=== PATIENT | male | born 1950 | race Caucasian/White ===

== ENCOUNTER 2017-07-27 21:15 | Emergency (ER) | payer OTHER ==
[~2017-07-27] VITALS: Ht 170.2 cm; Wt 72.7 kg
[~2017-07-27 21:15] MED LIST: DOCUSATE SODIU100 MG PO; FEOSOL325 MG PO; FLEXERIL10 MG PO; FUROSEMIDE40 MG PO; LIBRIUM25 MG PO; LISINOPRIL2.5 MG PO; NAPROSYN500 MG PO; PANTOPRAZOLE SO40 MG PO; POTASSIUM CHLO20 ME1 PO; THIAMINE HCL100 MG PO; TYLENOL REGULA325 MG PO; VICODIN 5-3001 EACH PO
[2017-07-27 22:03] LABS: ALBUMIN 3.4 g/dL (3.2-4.8); CHLORIDE 105 mEq/L (99-109); POTASSIUM 3.7 mEq/L (3.7-5.4); SODIUM 141 mEq/L (136-147)
[2017-07-27 22:05] LABS: GLUCOSE 107 mg/dL (70-99)
[2017-07-27 22:06] LABS: TOTAL PROTEIN 6.6 g/dL (6.4-8.3)
[2017-07-27 22:07] LABS: TOTAL BILIRUBIN 0.7 mg/dL (0.0-1.0)
[2017-07-27 22:09] LABS: ALKALINE PHOSPHATASE 217 IU/L (3-129); CREATININE 0.8 mg/dL (0.6-1.3); GFR ESTIMATE (CALCULATED) > 59 mL/min/ (58.99-99999)
[2017-07-27 22:10] LABS: UREA NITROGEN (BUN) 15 mg/dL (9-23)
[2017-07-27 22:11] LABS: AST (GOT) 280 IU/L (2-34)
[2017-07-27 22:12] LABS: ALT (GPT) 121 IU/L (3-49); LIPASE 66 U/L (1.0-51.0)
[2017-07-27 22:14] LABS: TROP-I INTERPRETATION NEGATIVE; TROPONIN-I < 0.01 ng/mL (0.0-0.30)
[2017-07-27 22:26] LABS: SERUM ETHYL ALCOHOL 343 mg/dL
[2017-07-27 22:37] LABS: HEMATOCRIT 31.3 % (38.0-50.0); MCH 39.7 PG (29.0-34.0); MCHC 38.3 G/DL (30.0-36.0); MCV 103.6 FL (86-99); RBC DIS.WIDTH-CV 14.9 % (11.8-14.6); RBC DIS.WIDTH-SD 56.9 % (39-53); RED BLOOD COUNT 3.02 M/uL (4.00-5.50); WHITE BLOOD COUNT 4.4 K/uL (4.1-10.2)
[2017-07-27 22:46] LABS: ANISOCYTOSIS 1+; BASOPHIL (%) 0.9 % (0-1); EOSINOPHIL (%) 1.6 % (0-5); EOSINOPHIL COUNT 0.1 K/uL (0-0.3); IMM.PLATELET FRACTION 4.2 (1-7); IMMATURE GRANULOCYTE (%) 0.2 % (0.0-0.7); LYMPHOCYTE (%) 76.3 % (15-42); LYMPHOCYTE COUNT 3.4 K/uL (1.0-2.8); MACROCYTES 3+; MONOCYTE (%) 5.9 % (3-12); MONOCYTE COUNT 0.3 K/uL (0-0.8); NEUTROPHIL (%) 15.1 % (45-76); NEUTROPHIL COUNT 0.7 K/uL (1.8-6.4); PLAT.SUFFICIENCY VERY DECREASED; PLATELET COUNT 38 K/uL (156-360)
[2017-07-27 22:55] LABS: APPEARANCE CLEAR ((CLEAR)); BILIRUBIN NEGATIVE; BLOOD SMALL; COLOR YELLOW ((YELLOW)); GLUCOSE (STRIP) NEGATIVE; KETONES NEGATIVE; LEUKOCYTES NEGATIVE; NITRITE NEGATIVE; PROTEIN (STRIP) NEGATIVE; SPECIFIC GRAVITY 1.012 (1.000-1.030)
[2017-07-27 23:00] LABS: BACTERIA RARE /HPF; EPITHELIAL CELLS RARE /HPF; MUCUS TRACE /LPF; RED BLOOD CELLS 0-5 /HPF (0-5); UCUL ADDED? NO; WHITE BLOOD CELLS 0-5 /HPF (0-5)
[2017-07-28 00:41] VITALS: BP 130/79
== END 2017-07-28 00:42 | disposition left against medical advice (07) ==
LOC: EME 21:15
PROVIDERS: Emergency Medicine
DX: F10.129 Alcohol abuse with intoxication, unspecified (principal); Y90.8 Blood alcohol level of 240 mg/100 ml or more; R94.31 Abnormal electrocardiogram [ECG] [EKG]; Z53.21 Procedure and treatment not carried out due to patient leaving prior to being seen by health care provider; I10 Essential (primary) hypertension; I73.9 Peripheral vascular disease, unspecified; J45.909 Unspecified asthma, uncomplicated; F41.9 Anxiety disorder, unspecified; F17.200 Nicotine dependence, unspecified, uncomplicated; Z86.73 Personal history of transient ischemic attack (TIA), and cerebral infarction without residual deficits; Z87.19 Personal history of other diseases of the digestive system
CPT/HCPCS: 80053; 81003; 83690; 84484; 85025; 93005; G0480; J2405; J7120; Q0177

== ENCOUNTER 2017-08-02 16:21 | Inpatient (IN) | payer OTHER ==
[~2017-08-02] VITALS: Ht 170.2 cm; Wt 78.8 kg
[2017-08-02 17:20] LABS: ALBUMIN 3.8 g/dL (3.2-4.8)
[2017-08-02 17:21] LABS: CHLORIDE 99 mEq/L (99-109); SODIUM 134 mEq/L (136-147)
[2017-08-02 17:23] LABS: GLUCOSE 116 mg/dL (70-99); TOTAL PROTEIN 6.9 g/dL (6.4-8.3)
[2017-08-02 17:27] LABS: ALKALINE PHOSPHATASE 114 IU/L (3-129); CREATININE 1.2 mg/dL (0.6-1.3); GFR ESTIMATE (CALCULATED) > 59 mL/min/ (58.99-99999)
[2017-08-02 17:28] LABS: UREA NITROGEN (BUN) 18 mg/dL (9-23)
[2017-08-02 17:29] LABS: ALT (GPT) 88 IU/L (3-49)
[2017-08-02 17:30] LABS: LIPASE 48 U/L (1.0-51.0)
[2017-08-02 17:31] LABS: TROP-I INTERPRETATION NEGATIVE; TROPONIN-I < 0.01 ng/mL (0.0-0.30)
[2017-08-02 17:32] LABS: AST (GOT) 124 IU/L (2-34)
[2017-08-02 18:01] LABS: BASOPHIL (%) 0.8 % (0-1); EOSINOPHIL (%) 0.8 % (0-5); HEMATOCRIT 32.4 % (38.0-50.0); HEMOGLOBIN 11.4 G/DL (12.5-16.6); IMMATURE GRANULOCYTE (%) 0.3 % (0.0-0.7); LYMPHOCYTE (%) 37.1 % (15-42); LYMPHOCYTE COUNT 1.5 K/uL (1.0-2.8); MCHC 35.2 G/DL (30.0-36.0); MONOCYTE COUNT 0.4 K/uL (0-0.8); NRBC (%) 0.5 /100 WBC (0-0); RBC DIS.WIDTH-CV 14.7 % (11.8-14.6); RBC DIS.WIDTH-SD 60.2 % (39-53); RED BLOOD COUNT 2.92 M/uL (4.00-5.50); WHITE BLOOD COUNT 3.9 K/uL (4.1-10.2)
[2017-08-02 18:44] LABS: IMM.PLATELET FRACTION 7.5 (1-7); PLAT.SUFFICIENCY VERY DECREASED; PLATELET COUNT 43 K/uL (156-360)
[2017-08-02 20:55] VITALS: BP 155/78
[2017-08-02 22:10] LABS: SERUM ETHYL ALCOHOL < 10 mg/dL
[2017-08-02 23:22] VITALS: BP 143/69
[2017-08-03 01:04] LABS: TROP-I INTERPRETATION NEGATIVE; TROPONIN-I < 0.01 ng/mL (0.0-0.30)
[2017-08-03 04:19] VITALS: BP 120/66
[2017-08-03 07:24] LABS: HEMOGLOBIN 10.3 G/DL (12.5-16.6); MCH 40.1 PG (29.0-34.0); MCHC 35.5 G/DL (30.0-36.0); MCV 112.8 FL (86-99); RBC DIS.WIDTH-CV 14.8 % (11.8-14.6); RBC DIS.WIDTH-SD 60.8 % (39-53); RED BLOOD COUNT 2.57 M/uL (4.00-5.50); WHITE BLOOD COUNT 4.4 K/uL (4.1-10.2)
[2017-08-03 07:37] LABS: TROP-I INTERPRETATION NEGATIVE; TROPONIN-I 0.01 ng/mL (0.0-0.30)
[2017-08-03 07:39] LABS: ALBUMIN 3.1 G/DL (3.2-4.8); ALKALINE PHOSPHATASE 75 IU/L (3-129); ALT (GPT) 55 IU/L (3-49); AMYLASE 27 IU/L (1-118); AST (GOT) 75 IU/L (2-34); CHLORIDE 99 MEQ/L (99-109); CREATININE 0.9 MG/DL (0.6-1.3); GFR ESTIMATE (CALCULATED) > 59 mL/min/ (58.99-99999); GLUCOSE 110 mg/dL (70-99); LIPASE 45 U/L (1.0-51.0); POTASSIUM 2.9 MEQ/L (3.7-5.4); SODIUM 132 MEQ/L (136-147); TOTAL PROTEIN 5.5 G/DL (6.4-8.3); UREA NITROGEN (BUN) 14 mg/dL (9-23)
[2017-08-03 09:18] LABS: IMM.PLATELET FRACTION 7.2 (1-7); PLAT.SUFFICIENCY DECREASED; PLATELET COUNT 39 K/uL (156-360)
[2017-08-03 09:51] VITALS: BP 131/80
[2017-08-03 12:29] VITALS: BP 154/79
[2017-08-03 15:25] VITALS: BP 133/73
[2017-08-03 16:38] LABS: CHLORIDE 101 MEQ/L (99-109); SODIUM 134 MEQ/L (136-147)
[2017-08-03 16:44] LABS: CREATININE 0.8 MG/DL (0.6-1.3); GFR ESTIMATE (CALCULATED) > 59 mL/min/ (58.99-99999); GLUCOSE 107 mg/dL (70-99); UREA NITROGEN (BUN) 9 mg/dL (9-23)
[2017-08-03 16:49] LABS: POTASSIUM 3.8 MEQ/L (3.7-5.4); TROP-I INTERPRETATION NEGATIVE; TROPONIN-I < 0.01 ng/mL (0.0-0.30)
[2017-08-03 19:34] VITALS: BP 112/69
[2017-08-03 23:39] VITALS: BP 129/59
[2017-08-04 04:26] VITALS: BP 124/64
[2017-08-04 06:01] LABS: BASOPHIL (%) 0.6 % (0-1); EOSINOPHIL (%) 2.3 % (0-5); EOSINOPHIL COUNT 0.1 K/uL (0-0.3); HEMATOCRIT 28.9 % (38.0-50.0); LYMPHOCYTE COUNT 1.4 K/uL (1.0-2.8); MCH 39.5 PG (29.0-34.0); MCHC 34.6 G/DL (30.0-36.0); MCV 114.2 FL (86-99); MONOCYTE (%) 10.9 % (3-12); MONOCYTE COUNT 0.4 K/uL (0-0.8); NEUTROPHIL (%) 46.2 % (45-76); NEUTROPHIL COUNT 1.6 K/uL (1.8-6.4); NRBC (%) 0.9 /100 WBC (0-0); RBC DIS.WIDTH-CV 15.4 % (11.8-14.6); RBC DIS.WIDTH-SD 63.5 % (39-53); RED BLOOD COUNT 2.53 M/uL (4.00-5.50); WHITE BLOOD COUNT 3.5 K/uL (4.1-10.2)
[2017-08-04 06:56] LABS: IMM.PLATELET FRACTION 4.6 (1-7); PLAT.SUFFICIENCY DECREASED; PLATELET COUNT 41 K/uL (156-360)
[2017-08-04 08:00] VITALS: BP 113/67
[2017-08-04 11:35] VITALS: BP 126/80
[2017-08-04 15:55] VITALS: BP 125/59
[2017-08-04 19:59] VITALS: BP 117/69
[2017-08-05] VITALS (7 sets, daily range): BP systolic 108–140; BP diastolic 59–76
[2017-08-06 04:21] VITALS: BP 134/66
[2017-08-06 06:44] LABS: BASOPHIL (%) 0.7 % (0-1); EOSINOPHIL (%) 3.2 % (0-5); EOSINOPHIL COUNT 0.1 K/uL (0-0.3); HEMATOCRIT 27.3 % (38.0-50.0); HEMOGLOBIN 9.2 G/DL (12.5-16.6); IMMATURE GRANULOCYTE (%) 0.4 % (0.0-0.7); LYMPHOCYTE COUNT 1.8 K/uL (1.0-2.8); MCH 39.1 PG (29.0-34.0); MCHC 33.7 G/DL (30.0-36.0); MCV 116.2 FL (86-99); MONOCYTE (%) 17.6 % (3-12); MONOCYTE COUNT 0.5 K/uL (0-0.8); NEUTROPHIL (%) 15.1 % (45-76); NEUTROPHIL COUNT 0.4 K/uL (1.8-6.4); PLATELET COUNT 52 K/uL (156-360); RBC DIS.WIDTH-CV 16.2 % (11.8-14.6); RED BLOOD COUNT 2.35 M/uL (4.00-5.50); WHITE BLOOD COUNT 2.8 K/uL (4.1-10.2)
[2017-08-06 07:13] LABS: ALKALINE PHOSPHATASE 57 IU/L (3-129); ALT (GPT) 34 IU/L (3-49); AST (GOT) 35 IU/L (2-34); CHLORIDE 105 MEQ/L (99-109); CREATININE 0.8 MG/DL (0.6-1.3); DIRECT BILIRUBIN 0.4 mg/dL (0.0-0.3); GFR ESTIMATE (CALCULATED) > 59 mL/min/ (58.99-99999); GLUCOSE 100 mg/dL (70-99); POTASSIUM 3.5 MEQ/L (3.7-5.4); SODIUM 140 MEQ/L (136-147); TOTAL BILIRUBIN 1.1 MG/DL (0.0-1.0); TOTAL PROTEIN 5.1 G/DL (6.4-8.3); UREA NITROGEN (BUN) 7 mg/dL (9-23)
[2017-08-06 07:20] VITALS: BP 125/67
[2017-08-06 07:22] VITALS: BP 125/67
[2017-08-06 15:17] VITALS: BP 140/67
[2017-08-06] MEDS ORDERED: FOLIC ACID1 MG PO (17:03)
[2017-08-06] MEDS ORDERED: AMOX TR-K CLV1 EAC4 PO (17:03)
[2017-08-06] MEDS ORDERED: PANTOPRAZOLE SO40 MG PO (17:03)
[2017-08-06] MEDS ORDERED: AMLODIPINE BES2.5 MG PO (17:03)
[2017-08-06] MEDS ORDERED: ATARAX10 MG PO (17:03)
[2017-08-06] MEDS ORDERED: Thiamine,Vitamin B1 PO (17:03)
== END 2017-08-06 17:35 | disposition home or self-care (01) | DRG 392 ==
LOC: EME 16:21 → 5SOUTH 19:25 → EDOF 19:25 → ENRESERV 19:39 → 4EAST 20:43 → ENRESERV 08-03 08:53 → 5SOUTH 08-03 11:59 → ENPENDDIS 08-06 17:04 → 5SOUTH 08-06 17:35
PROVIDERS: Emergency Medicine; Internal Medicine
DX: K52.9 Noninfective gastroenteritis and colitis, unspecified (principal); D61.818 Other pancytopenia; E87.1 Hypo-osmolality and hyponatremia; E87.6 Hypokalemia; K72.90 Hepatic failure, unspecified without coma; F10.20 Alcohol dependence, uncomplicated; Z91.14 Patient's other noncompliance with medication regimen; Z91.19 Patient's noncompliance with other medical treatment and regimen; J98.11 Atelectasis; R07.89 Other chest pain; R42 Dizziness and giddiness; J45.909 Unspecified asthma, uncomplicated; I10 Essential (primary) hypertension; K21.9 Gastro-esophageal reflux disease without esophagitis; I73.9 Peripheral vascular disease, unspecified; M19.90 Unspecified osteoarthritis, unspecified site; F17.210 Nicotine dependence, cigarettes, uncomplicated; F41.9 Anxiety disorder, unspecified; Z82.5 Family history of asthma and other chronic lower respiratory diseases; Z86.73 Personal history of transient ischemic attack (TIA), and cerebral infarction without residual deficits; Z87.11 Personal history of peptic ulcer disease
CPT/HCPCS: 71045; 80048; 80048 91; 80053; 80076; 82150; 83690; 84484; 85025; 85027; 93005; 99281; 99285; C9113; G0480; J2405; J3480; J7030